=== PATIENT | female | born 1990 | race Caucasian/White ===

== ENCOUNTER 2020-10-30 10:08 | Day surgery (SDC) | payer BC ==
[2020-10-30 10:54] VITALS: BMI 27.4
[2020-10-30] MEDS ORDERED: hydrALAZINE 20 MG/ML VIAL SLOW IVP PRN (13:00)
== END 2020-10-30 12:55 | disposition home or self-care (01) ==
LOC: CSHLD/OP 10:08
PROVIDERS: ATTEND Obstetrics & Gynecology
DX: O47.03 False labor before 37 completed weeks of gestation, third trimester (principal); Z3A.35 35 weeks gestation of pregnancy; Z88.1 Allergy status to other antibiotic agents; Z88.5 Allergy status to narcotic agent; Z91.040 Latex allergy status
CPT/HCPCS: 59025; 99282